=== PATIENT | female | born 1995 | race Caucasian/White ===

== ENCOUNTER 2016-07-02 12:29 | Emergency (ER) | payer SELFPAY ==
--- NOTE | 2016-07-02 13:26 | Emergency Department Record ---
History of Present Illness - General Chief complaint: ENT Stated complaint: EAR PAIN Time Seen by Provider: 07/02/16 13:25 Source: Patient Mode of Arrival: Ambulatory Limitations: No limitations - History of Present Illness Initial comments: 20 yo female presents with cough, congestion, and now left ear pain. She has developed drainage from the ear with some blood. complaint: Ear pain Onset/Timin -: Days(s) Location: L ear Severity: Moderate Severity scale (1-10): 10 Quality: Sharp Consistency: Constant Improves with: None Worsens with: None Context- Ear: Recent illness Associated Symptoms: Cough, Discharge from ear - Related Data Previous Rx's Medication Instructions Recorded Amoxicillin/Potassium Clav [Amox 1 each PO BID #20 tablet 07/02/16 Tr-K Clv 875-125 mg Tab] Hydrocodone/Acetaminophen [[place] 1 tab PO Q8H PRN #15 tab 07/02/16 7.5mg/325mg] Meclizine HCl [Antivert] 25 mg PO Q8H #20 tablet 07/02/16 Ondansetron [Zofran Odt] 4 mg PO Q8H #20 tab.rapdis 07/02/16 Allergies Allergy/AdvReac Type Severity Reaction Status Date / Time amoxicillin Allergy HIVES Verified 07/02/16 13:14 Travel Screening - Travel/Exposure Within Last 30 Days Have you traveled within the last 30 days?: No - Travel Symptoms Symptom Screening: None Review of Systems Constitutional: Reports: Chills, Fever Eyes: Denies: Eye discharge, Eye pain ENT: Reports: As per HPI, Congestion, Ear pain Respiratory: Reports: Cough. Denies: Dyspnea, Hemoptysis, Stridor, Wheezes Cardiovascular: Denies: Chest pain, Palpitations, Syncope Endocrine: Denies: Fatigue Gastrointestinal: Denies: Abdominal pain, Diarrhea, Nausea, Vomiting Genitourinary: Denies: Dysuria, Urgency Musculoskeletal: Denies: Arthralgia, Back pain, Joint swelling, Myalgia, Neck pain Skin: Denies: Bruising, Change in color, Rash Neurological: Denies: Abnormal gait, Confusion, Headache, Numbness, Seizure, Tingling, Tremors, Vertigo, Weakness Psychiatric: Denies: Anxiety Hematological/Lymphatic: Denies: Blood Clots, Easy bleeding, Easy bruising, Swollen glands Past Medical History - SOCIAL HISTORY Smoking Status: Never smoker Alcohol Use: Occassional Drug Use: None - RESPIRATORY Hx Respiratory Disorders: No - CARDIOVASCULAR Hx Cardio Disorders: No - NEURO Hx Neuro Disorders: No - GI Hx GI Disorders: No - Hx Genitourinary Disorders: No - ENDOCRINE Hx Endocrine Disorders: No - MUSCULOSKELETAL Hx Musculoskeletal Disorders: No - PSYCH Hx Psych Problems: No - HEMATOLOGY/ONCOLOGY Hx Hematology/Oncology Disorders: No Family Medical History Any Significant Family History?: No Physical Exam - General General Appearance: Alert, Oriented x3, Cooperative, No acute distress Limitations: No limitations - Head Head exam: Normal inspection - Eye Eye exam: Normal appearance, PERRL. negative: Conjunctival injection, Scleral icterus - ENT ENT exam: Mucous membranes moist, Normal external ear exam, Normal orophraynx. negative: Normal exam, Mucous membranes dry, TM's normal bilaterally Ear exam: Normal external inspection. negative: External canal tenderness Nasal Exam: Normal inspection. negative: Discharge, Sinus tenderness Mouth exam: Normal external inspection, Tongue normal Teeth exam: Normal inspection. negative: Dental caries Throat exam: Normal inspection. negative: Tonsillar erythema, Tonsillar exudate - Neck Neck exam: Normal inspection, Full ROM. negative: Lymphadenopathy, Tenderness - Respiratory Respiratory exam: Normal lung sounds bilaterally. negative: Respiratory distress - Cardiovascular Cardiovascular Exam: Regular rate, Normal rhythm, Normal heart sounds - GI/Abdominal GI/Abdominal exam: Soft. negative: Tenderness - Rectal Rectal exam: Deferred - exam: Deferred - Extremities Extremities exam: Normal inspection, Full ROM, Normal capillary refill. negative: Pedal edema, Tenderness - Back Back exam: Reports: Normal inspection, Full ROM. Denies: Muscle spasm, Rash noted, Tenderness - Neurological Neurological exam: Alert, Normal gait, Oriented X3 - Psychiatric Psychiatric exam: Normal affect, Normal mood. negative: Agitated, Anxious - Skin Skin exam: Dry, Intact, Normal color, Warm. negative: Cyanosis, Diaphoretic, Erythema Course Vital Signs 07/02/16 13:10 Temperature 98.0 F Pulse Rate 100 H Respiratory 18 Rate Blood Pressure 103/63 Pulse Ox 98 - Reevaluation(s) Reevaluation #1: The patient was seen and examined. She has a LOM with perforation. There is a small amount of blood fluid in the canal RX for antibiotics called to her pharmacy I recommended calling her PCP today to arrange an ENT referral. 07/02/16 13:31 07/02/16 13:37 Reevaluation #2: I SW the patient's PCP She will recheck the ear in the office. If any concerns persist she will refer to ENT as needed 07/02/16 Disposition Disposition: Discharge Clinical Impression: Otitis media Qualifiers: Otitis media type: unspecified Laterality: left Chronicity: unspecified Qualified Code(s): H66.92 - Otitis media, unspecified, left ear Disposition: Home, Self-Care Condition: (1) Good Instructions: Otitis Media (ED) Additional Instructions: Call your doctor today for close follow up Start your antibiotics today Prescriptions: Amoxicillin/Potassium Clav [Amox Tr-K Clv 875-125 mg Tab] 1 each PO BID #20 tablet Meclizine HCl [Antivert] 25 mg PO Q8H #20 tablet Hydrocodone/Acetaminophen [[place] 7.5mg/325mg] 1 tab PO Q8H PRN #15 tab PRN Reason: Pain - General Ondansetron [Zofran Odt] 4 mg PO Q8H #20 tab.rapdis Forms: Patient Portal Access Time of Disposition: 13:41
== END 2016-07-02 13:50 | disposition home or self-care (01) ==
LOC: ER 12:29
DX: H66.92 Otitis media, unspecified, left ear (principal); R05 Cough
CPT/HCPCS: 99282